=== PATIENT | male | born 1950 | race Caucasian/White ===

== ENCOUNTER 2018-03-01 08:15 | Emergency (ER) | payer BC ==
[~2018-03-01] VITALS: Ht 177.8 cm; Wt 72.7 kg
[~2018-03-01 08:15] MED LIST: ASPIRIN E.C. 8181 MG PO; ATENOLOL; ATENOLOL50 MG PO; LISINOPRIL; LISINOPRIL20 MG PO; NORVASC 5MG5 MG/TAB; PEPCID 20MG TAB20 MG PO; PRINIVIL40 MG; TENORMIN100 MG
[2018-03-01 09:14] LABS: BASO # 0.1 (0.0-0.2); EOS # 0.1 (0.0-0.7); EOS % 1.1 % (0-4.0); GRAN # 4.7 (1.4-6.5); GRAN % 74.4 % (42.2-75.2); HEMATOCRIT 41.1 % (42.0-52.0); HEMOGLOBIN 14.3 g/dl (13.5-18.0); LYMPH # 0.8 (1.2-3.4); LYMPH % 12.3 % (20.0-51.0); MEAN CELL VOLUME 93 fl (80.0-100.0); MEAN CORPUSCULAR HEMOGLOBIN 32 pg (27.0-31.0); MEAN CORPUSCULAR HGB CONC 35 g/dl (33.0-37.0); MEAN PLATELET VOLUME 9.3 fl (7.4-10.4); MONO # 0.7 (0.1-0.6); MONO % 10.7 % (1.7-9.3); PLATELET COUNT 225 K/mm3 (130-400); RED BLOOD COUNT 4.44 M/mm3 (4.20-5.60); REDCELL DISTRIBUTION WIDTH-CV 12.9 % (11.5-14.5)
[2018-03-01 09:43] LABS: ALANINE AMINOTRANSFERASE 28 U/L (21-72); ALBUMIN 4.2 gm/dL (3.5-5.0); ALKALINE PHOSPHATASE 72 U/L (50-136); ANION GAP 6 mmol/L (7-16); AST,SGOT 36 U/L (15-37); BILIRUBIN,TOTAL 1.1 mg/dL (0.0-1.0); BLOOD UREA NITROGEN 11 mg/dL (9-20); CALCIUM 9.2 mg/dL (8.4-10.2); CARBON DIOXIDE 28 mmol/L (22-30); CHLORIDE 99 mmol/L (98-107); CREATININE, serum 0.74 mg/dL (0.66-1.25); GLUCOSE 102 mg/dL (74-106); POTASSIUM 4.6 mmol/L (3.4-5.0); SODIUM 132 mmol/L (137-145); TOTAL PROTEIN 7.5 gm/dL (6.4-8.2)
[2018-03-01 09:48] LABS: C-REACTIVE PROTEIN < 0.5 mg/dL (0.0-0.9)
[2018-03-01 09:52] LABS: TROPONIN-I < 0.012 ng/mL (0.000-0.034)
[2018-03-01 10:00] VITALS: BP 130/75; PULSE 62
[2018-03-01] MEDS ORDERED: AMOXICILLIN 8751 TAB PO (10:03)
== END 2018-03-01 10:15 | disposition home or self-care (01) ==
LOC: COL.ER 08:15
PROVIDERS: Physician Assistant
DX: S01.91XA Laceration without foreign body of unspecified part of head, initial encounter (principal); R55 Syncope and collapse; J32.9 Chronic sinusitis, unspecified; K21.9 Gastro-esophageal reflux disease without esophagitis; I10 Essential (primary) hypertension; Z79.82 Long term (current) use of aspirin; W19.XXXA Unspecified fall, initial encounter; Y92.59 Other trade areas as the place of occurrence of the external cause

== ENCOUNTER 2018-03-07 09:28 | Emergency (ER) | payer BC ==
[2018-03-07 09:40] VITALS: BP 144/88; PULSE 65; TEMP 98.2
== END 2018-03-07 09:45 | disposition home or self-care (01) ==
LOC: COL.ER 09:28
DX: S01.01XD Laceration without foreign body of scalp, subsequent encounter (principal); X58.XXXD Exposure to other specified factors, subsequent encounter

== ENCOUNTER → 2018-03-07 | Outpatient (CLI) | payer BC ==
[~2018-03-07] MED LIST changes: +AMOXICILLIN 8751 TAB PO
== END ==
LOC: COL.VAS 08:38
DX: I70.90 Unspecified atherosclerosis (principal); R55 Syncope and collapse

== ENCOUNTER → 2019-06-20 | Outpatient (CLI) | payer BC ==
[~2019-06-20] MED LIST changes: +COREG 25MG25 MG/TAB PO; +NORVASC 10MG10 MG PO; -NORVASC 5MG5 MG/TAB; +NORVASC 5MG5 MG/TAB PO; +PREDNISONE20 MG PO; -PRINIVIL40 MG; +PRINIVIL40 MG PO; +PROVENTIL0.09 MG/A1 IH; +STIOLTO RESPIMAT4 GM IH; +ZITHROMAX 250M250 MG PO
[2019-06-20 15:34] LABS: TROPONIN-I 0.936 ng/mL (0.000-0.035)
== END ==
LOC: ZCOL.LAB 14:43
PROVIDERS: Family Medicine
DX: R06.02 Shortness of breath (principal)